=== PATIENT | female | born 1985 | race Caucasian/White ===

== ENCOUNTER 2017-04-04 18:45 | Emergency (ER) | payer OTHER ==
--- NOTE | 2017-04-04 20:54 | EDM.PDOC ---
ED HPI GENERAL MEDICAL PROBLEM - General Chief Complaint: Chest Pain Stated Complaint: CHEST PAIN Time Seen by Provider: 04/04/17 19:00 Source of Information: Reports: Patient History Limitations: Reports: No Limitations - History of Present Illness INITIAL COMMENTS - FREE TEXT/NARRATIVE: This lady complains of pain in the left inframammary region. The pain started in December shortly after she was treated for an upper respiratory infection with some amoxicillin. She occasionally has episodes of some shortness of breath. The chest pain started after she finished the amoxicillin. She's been worked up in the past including blood work multiple EKGs a D-dimer test that was at [facility] in [place]. She never had a chest x-ray however. The pain is sharp and stabbing. Occasionally she feels some kind of fluttering. She actually had a ambulatory monitoring tech placed recently a [employer] monitor. She's wearing that presently. The pain does not seem to be related to breathing coughing or movements. She does mention though that it seems to be a little bit worse lying down. Her mom is worried that it might be a thyroid problem. A TSH was previously done but mom was concerned because she said that her TSH was normal but then at other testing showed some kind of a thyroid abnormality. This patient is not exhibiting any of the usual symptoms of hypo-or hyperthyroidism Left Chest Pain Score (Numeric/FACES): 5 - Related Data Allergies Allergy/AdvReac Type Severity Reaction Status Date / Time No Known Allergies Allergy Verified 04/04/17 19:14 Home Meds: Home Meds NK [No Known Home Meds] 04/04/17 [History] Past Medical History HEENT History: Reports: Impaired Vision Gastrointestinal History: Reports: GERD Psychiatric History: Reports: Anxiety - Past Surgical History HEENT Surgical History: Reports: Adenoidectomy, Tonsillectomy GI Surgical History: Reports: EGD Social & Family History - Tobacco Use Smoking Status *Q: Former Smoker Years of Tobacco use: 10 Packs/Tins Daily: 1 Used Tobacco, but Quit: Yes Month Tobacco Last Used: October Second Hand Smoke Exposure: No - Caffeine Use Caffeine Use: Reports: None - Alcohol Use Days Per Week of Alcohol Use: 0 - Recreational Drug Use Recreational Drug Use: No ED ROS GENERAL - Review of Systems Review Of Systems: ROS reveals no pertinent complaints other than HPI. ED EXAM, GENERAL - Physical Exam Exam: See Below Exam Limited By: No Limitations General Appearance: Alert, WD/WN, No Apparent Distress Eye Exam: Bilateral Eye: Normal Inspection Neck: Normal Inspection Respiratory/Chest: Lungs Clear, Other (The ambulatory monitoring tech is in place in the left infraclavicular area. There seemed to be some very mild tenderness to the costochondral junction in the left inframammary area I think that's rib #6 or 7) Cardiovascular: Normal Peripheral Pulses, Regular Rate, Rhythm, No Murmur GI/Abdominal: Soft, Non-Tender Extremities: Normal Inspection Neurological: Alert Skin Exam: Warm, Dry Course - Vital Signs Last Recorded V/S: Last Vital Signs Temp 36.2 C 04/04/17 19:21 Pulse 79 04/04/17 19:21 Resp 16 04/04/17 19:21 BP 132/87 04/04/17 19:21 Pulse Ox 98 04/04/17 19:21 - Orders/Labs/Meds Orders: Active Orders 24 hr Category Date Time Status EKG Documentation Completion [RC] ASDIRECTED Care 04/04/17 19:56 Active Chest 2V [CR] Urgent Exams 04/04/17 19:55 Taken EKG 12 Lead [EK] Urgent Ther 04/04/17 19:56 Ordered - Re-Assessments/Exams Free Text/Narrative Re-Assessment/Exam: 04/04/17 20:55 EKG showed sinus rhythm at 69 bpm there is a slight RSR prime in V1 and V2 but not enough to call it a right bundle branch block. Chest x-ray shows normal heart size normal lung markings normal bony and soft tissue. The ambulatory monitor is in place Departure - Departure Time of Disposition: 20:56 Disposition: Home, Self-Care 01 Condition: Fair Clinical Impression: Chest wall pain Referrals: Rachel Segura MD [Primary Care Provider] - Additional Instructions: The pain you are having is most likely some inflammation of the nerve that runs under your rib. It could also be related to some inflammation in the area where the rib joins the cartilage. I believe this is your sixth or seventh rib. My recommendation is that you see an arts education teacher about an intercostal nerve block. If a nerve block completely relieves the pain then that is great diagnostic value and can guide further therapy. You may need to get a referral from your family doctor - My Orders Last 24 Hours: My Active Orders 04/04/17 19:55 Chest 2V [CR] Urgent 04/04/17 19:56 EKG Documentation Completion [RC] ASDIRECTED EKG 12 Lead [EK] Urgent - Assessment/Plan Last 24 Hours: My Active Orders 04/04/17 19:55 Chest 2V [CR] Urgent 04/04/17 19:56 EKG Documentation Completion [RC] ASDIRECTED EKG 12 Lead [EK] Urgent
[2017-04-04 21:13] VITALS: BP 126/83
--- NOTE | 2017-04-05 10:39 | CR ---
Chest 2V HISTORY: No Clinical Info FINDINGS: Heart size within normal limits. Pulmonary vasculature within normal limits. No evidence fo r focal consolidation or cardiopulmonary process. Power pack left hemithorax. IMPRESSION: No radiographic evidence for acute cardiopulmonary process.
== END 2017-04-04 21:14 | disposition home or self-care (01) ==
LOC: JP.ED 18:45
DX: R07.89 Other chest pain (principal); K21.9 Gastro-esophageal reflux disease without esophagitis; Z90.49 Acquired absence of other specified parts of digestive tract; Z98.890 Other specified postprocedural states; Z87.891 Personal history of nicotine dependence
CPT/HCPCS: 71020; 71020-26; 93005; 99285-25